=== PATIENT | male | born 1975 | race Native Hawaiian/Other Pacific Islander ===

== ENCOUNTER 2018-09-28 15:15 | Emergency (ER) | payer OTHER ==
[~2018-09-28] VITALS: Ht 185.4 cm; Wt 83.9 kg
[2018-09-28 16:18] VITALS: BP 114/90; TEMP 98.2
== END 2018-09-28 16:21 | disposition home or self-care (01) ==
LOC: ED 15:15
DX: S60.411A Abrasion of left index finger, initial encounter (principal); W29.8XXA Contact with other powered hand tools and household machinery, initial encounter
CPT/HCPCS: 99281

== ENCOUNTER 2019-10-11 16:35 | Emergency (ER) | payer OTHER ==
[~2019-10-11] VITALS: Ht 185.4 cm; Wt 83.9 kg
[2019-10-11 17:25] VITALS: BP 105/75; TEMP 98.6
== END 2019-10-11 17:25 | disposition home or self-care (01) ==
LOC: ED 16:35
DX: Z20.828 Contact with and (suspected) exposure to other viral communicable diseases (principal)
CPT/HCPCS: 99281

== ENCOUNTER 2021-10-11 21:15 | Emergency (ER) | payer OTHER ==
[~2021-10-11] VITALS: Ht 185.4 cm; Wt 85.7 kg
[2021-10-11] MEDS ORDERED: 904272561 PO (21:37)
[2021-10-11 22:06] VITALS: BP 126/80; TEMP 99.3
== END 2021-10-11 22:06 | disposition home or self-care (01) ==
LOC: ED 21:15
DX: N48.22 Cellulitis of corpus cavernosum and penis (principal); S30.862A Insect bite (nonvenomous) of penis, initial encounter; W57.XXXA Bitten or stung by nonvenomous insect and other nonvenomous arthropods, initial encounter; Y92.89 Other specified places as the place of occurrence of the external cause
CPT/HCPCS: 99282

== ENCOUNTER 2021-10-15 18:12 | Inpatient (IN) | payer OTHER ==
[~2021-10-15] VITALS: Ht 185.4 cm; Wt 82.4 kg
[2021-10-15] VITALS (7 sets, daily range): BP systolic 112–135; BP diastolic 65–77; TEMP 100.2–101.8
[~2021-10-15 18:12] MED LIST: 904272561 PO
[2021-10-15 20:00] LABS: PLATELET COUNT 315 K/uL (142-355)
[2021-10-15 20:21] LABS: POTASSIUM 4.2 mmol/L (3.6-5.2)
[2021-10-16 00:09] VITALS: BP 111/70; TEMP 99; Ht 185.4 cm; Wt 82.4 kg
[2021-10-16 04:00] VITALS: BP 95/55; TEMP 99.5
[2021-10-16 05:11] LABS: PLATELET COUNT 271 K/uL (142-355)
[2021-10-16 05:22] LABS: POTASSIUM 3.6 mmol/L (3.6-5.2)
[2021-10-16 08:00] VITALS: BP 110/68; TEMP 100.1
[2021-10-16 12:00] VITALS: BP 101/59; TEMP 98.6
[2021-10-16 16:00] VITALS: BP 109/66; TEMP 98.6
[2021-10-16 20:00] VITALS: BP 112/71; TEMP 98.1
[2021-10-17] VITALS: BP 106/65; TEMP 98.3
[2021-10-17 04:00] VITALS: BP 114/63; TEMP 97.6
[2021-10-17 05:22] LABS: PLATELET COUNT 310 K/uL (142-355)
[2021-10-17 07:51] VITALS: BP 103/60; TEMP 97.7
[2021-10-17 12:13] VITALS: BP 135/84; TEMP 97.9
== END 2021-10-17 15:25 | disposition home or self-care (01) | DRG 730 ==
LOC: ED 18:12 → MED/SURG 20:35
PROVIDERS: ADMIT Family Medicine; ATTEND Internal Medicine
DX: N50.89 Other specified disorders of the male genital organs (principal); T63.481A Toxic effect of venom of other arthropod, accidental (unintentional), initial encounter; Y92.89 Other specified places as the place of occurrence of the external cause
CPT/HCPCS: 36415; 80053; 80307; 81002; 83735; 84100; 84153; 85027; 86140; 87040; 87490; 87590; 87635; 96365; 96375; 99284; J1885; J2543; J2920; U0003